=== PATIENT | female | born 1980 | race Caucasian/White ===

== ENCOUNTER 2024-01-30 08:08 | Outpatient (CLI) | payer OTHER, SELFPAY ==
--- NOTE | ~2024-01-30 | MMUS_ITS ---
EXAMINATION: MM diagnostic navi BI w janee, US breast BI complete HISTORY: Left breast lump TECHNIQUE: Full field and spot ML, MLO and CC 3-D tomosynthesis images of both breasts were performed and synthetic 2-D images were generated. CAD analysis was submitted and interpreted. High resolution complete bilateral breast ultrasound examination including all 4 quadrants and subareolar area of ea ch breast was performed. COMPARISON: 12/19/2018 right diagnostic mammogram and complete right breast ultrasound examination 12/12/2018 bilateral screening mammogram BREAST PARENCHYMAL COMPOSITION: The breasts are extremely dense, which lowers the sensitivity of mamm ography. FINDINGS: MAMMOGRAPHIC FINDINGS: Low-density circumscribed rounded 12 mm mass is noted posteriorly in the inner mid right breast (cran iocaudal Tomosynthesis image 43/91). 3.7 cm rounded circumscribed opacity is noted in the inner aspect of the upper outer quadrant of the left breast anteriorly. . Extremely dense stroma may obscure additional masses. No suspicious mass, architectural distortion, malignant calcification, skin thickening or retraction of either breast is detected. ULTRASOUND: There are bilateral simple cysts scattered in the breasts, including 11 mm and 6 mm adjacent cysts at right breast 12:00 position 6 cm from nipple, 12 mm cyst of right breast at 1:00 6 cm from nipple. L argest cyst is situated on the left at 12:00 5 cm from the nipple, measuring 2.6 x 3.65 cm. Smaller l eft cysts measuring 3 x 5 mm at 6:00 6 cm from the nipple, 4.4 mm at 8:00 5 cm from the nipple, 5.6 m m at 10:00 6 cm from the nipple. No suspicious mass or shadowing of either breast is detected. IMPRESSION: 1. Bilateral benign breast cysts. No mammographic or sonographic evidence of malignancy 2. Routine annual mammographic screening is recommended. BI-RADS Category 2: Benign finding(s). Reviewed, dictated and finalized at location A. IMPRESSION: 1. Bilateral benign breast cysts. No mammographic or sonographic evidence of ma lignancy 2. Routine annual mammographic screening is recommended. BI-RADS Category 2: Benign finding(s).
== END 2024-01-30 08:09 ==
PROVIDERS: PCP Obstetrics & Gynecology; Visit Provider Obstetrics & Gynecology
DX: N63.20 Unspecified lump in the left breast, unspecified quadrant (principal); N60.01 Solitary cyst of right breast; N60.02 Solitary cyst of left breast
CPT/HCPCS: 76641

== ENCOUNTER 2025-06-30 15:37 | Outpatient (CLI) | payer OTHER, SELFPAY ==
--- NOTE | ~2025-06-30 | MM_ITS ---
EXAMINATION: MM screening [facility] BI w janee HISTORY: Screening TECHNIQUE: Craniocaudal and mediolateral oblique 3-D tomosynthesis images were obtained and synthetic 2-D images were generated. CAD analysis was submitted and interpreted. COMPARISON: Mammogram and breast ultrasound 01/30/2024 BREAST PARENCHYMAL COMPOSITION: The breasts are extremely dense, which lowers the sensitivity of mammography. FINDINGS: There is no evidence of suspicious mass, calcification, or architectural distortion to suggest malignancy. There has been no suspicious interval change. IMPRESSION: 1. No mammographic evidence of malignancy. Recommend routine screening mammography in one year. BI-RADS Category 2: Benign finding(s) Reviewed, dictated and finalized at location Q. IMPRESSION: 1. No mammographic evidence of malignancy. Recommend routine screening mammogra phy in one year. BI-RADS Category 2: Benign finding(s)
== END 2025-06-30 15:38 | disposition home or self-care (01) ==
LOC: MICIMG 15:37
PROVIDERS: PCP Obstetrics & Gynecology; Visit Provider Obstetrics & Gynecology
DX: Z12.31 Encounter for screening mammogram for malignant neoplasm of breast (principal)
CPT/HCPCS: 77063; 77067